=== PATIENT | female | born 1990 | race Two or more races ===

== ENCOUNTER 2020-09-02 03:15 | Emergency (ER) | payer MEDICAID ==
[~2020-09-02] VITALS: Ht 165.1 cm; Wt 70.3 kg
[2020-09-02] MEDS ORDERED: CEFTRIAXONE 1,000 MG IM ONE (04:00)
[2020-09-02] MEDS ORDERED: AZITHROMYCIN 500 MG TABLET PO ONE (04:00)
[2020-09-02] MEDS ORDERED: IBUPROFEN 600 MG TABLET PO ONE (04:00)
[2020-09-02 04:04] LABS: HCG UR SG 1.035 (1.003-1.030)
[2020-09-02 04:05] LABS: MICROSCOPIC INDICATED
[2020-09-02] MEDS ORDERED: CEFTRIAXONE 1,000 MG ONE (04:11)
[2020-09-02] MEDS ORDERED: IBUPROFEN 600 MG TABLET ONE (04:11)
[2020-09-02] MEDS ORDERED: AZITHROMYCIN 500 MG TABLET ONE (04:11)
[2020-09-02 04:20] VITALS: BP 112/70
== END 2020-09-02 04:41 | disposition home or self-care (01) ==
LOC: ED 04:30
DX: M25.532 Pain in left wrist (principal); N30.00 Acute cystitis without hematuria; N89.8 Other specified noninflammatory disorders of vagina
CPT/HCPCS: 29125; 81001; 81025; 87077; 87086; 87491; 87591; 96372; 99283; J0696; 87186